=== PATIENT | male | born 1950 | race Hispanic/Latino ===

== ENCOUNTER → 2020-05-08 | Outpatient (CLI) | payer OTHER | END | disposition home or self-care (01) | LOC: RAH 12:52 | PROVIDERS: ATTEND Family Medicine | DX: G25.0 Essential tremor (principal) | CPT/HCPCS: 70450 ==

== ENCOUNTER 2020-09-12 09:06 | Inpatient (IN) | payer OTHER ==
[~2020-09-12] VITALS: Ht 170.2 cm; Wt 73.7 kg
[2020-09-12 09:45] LABS: EOSINOPHILS % (AUTO) 2.7 % (0.0-8.0); HEMATOCRIT 37.3 % (42-54); LYMPHOCYTES % (AUTO) 19.1 % (21.0-51.0); MEAN CORPUSCULAR HEMOGLOBIN 30.3 pg (27.0-33.0); MEAN CORPUSCULAR HGB CONC 33.2 g/dL (32.0-36.0); MEAN CORPUSCULAR VOLUME 91.2 fL (79-99); MONOCYTES % (AUTO) 8.8 % (3.0-13.0); NEUTROPHILS % (AUTO) 67.8 % (40.0-77.0); PLATELET COUNT (AUTO) 161 K/uL (130-400); RED BLOOD CELL COUNT(AUTO) 4.09 MIL/uL (4.50-6.20); RED CELL DISTRIBUTION WIDTH 13.6 % (11.0-15.5); WHITE BLOOD COUNT (AUTO) 6.2 K/uL (4.8-10.8)
[2020-09-12] MEDS ORDERED: ENOXAPARIN SODIUM 80 MG/0.8 ML SQ ONE ×2 (09:48→23:15)
[2020-09-12 10:03] LABS: CREATININE 1.3 mg/dL (0.5-1.5); POTASSIUM 4.2 mmol/L (3.5-5.1)
[2020-09-12 10:08] LABS: ALBUMIN 3.3 g/dL (3.5-5.0); BILIRUBIN,TOTAL 0.7 mg/dL (0.2-1.0); TOTAL PROTEIN, SERUM 7.2 g/dL (6.0-8.3)
[2020-09-12] MEDS ORDERED: ACETAMINOPHEN 650 MG SUPPOSITORY RC PRN (10:30)
[2020-09-12] MEDS ORDERED: LACTULOSE 20 GM/30 ML UDCUP PO PRN (10:30)
[2020-09-12] MEDS ORDERED: CLONIDINE HCL 0.1 MG TABLET PO PRN (10:30)
[2020-09-12] MEDS ORDERED: TEMAZEPAM 15 MG CAPSULE PO PRN (10:30)
[2020-09-12] MEDS ORDERED: ACETAMINOPHEN 325 MG TAB PO PRN (10:30)
[2020-09-12] MEDS ORDERED: ONDANSETRON 4MG INJ IVP PRN (10:30)
[2020-09-12] MEDS ORDERED: MORPHINE 2 MG SYG IVP PRN (10:30)
[2020-09-12 11:27] LABS: APPEARANCE,URINE CLEAR (CLEAR); BILIRUBIN,URINE NEGATIVE (NEGATIVE); COLOR,URINE YELLOW (YELLOW); GLUCOSE, URINE (UA) NEGATIVE (NEGATIVE); KETONES,URINE NEGATIVE (NEGATIVE); LEUKOCYTE ESTERASE ,URINE NEGATIVE (NEGATIVE); NITRATE,URINE NEGATIVE (NEGATIVE); OCCULT BLOOD,URINE TRACE-INTACT (NEGATIVE); PH,URINE 6.5 (5.0-8.0); PROTEIN,URINE NEGATIVE (NEGATIVE); UROBILINOGEN,URINE 0.2 mg/dL (0.2-1.0)
[2020-09-12] MEDS ORDERED: IOHEXOL-350 75 ML VIAL IV ONE (11:50)
[2020-09-12 11:56] LABS: BACTERIA,URINE Rare /HPF (None Seen); RBC,URINE 0-1 /HPF (0-1); SQUAMOUS EPITHELIAL CELL,UR 0-2 /HPF (0-2); WBC,URINE None Seen /HPF (0-1)
[2020-09-12] MEDS ORDERED: GADODIAMIDE 10 MMOL/20 ML VIAL IV ONE (13:42)
[2020-09-12 14:07] LABS: CREATINE KINASE, TOTAL 46 U/L (21-232); MYOGLOBIN 51 ng/mL (10-92); TROPONIN I < 0.04 ng/mL (0.00-0.06)
[2020-09-12 15:03] LABS: ABG BASE EXCESS 1.2 mmol/L (-2.0-3.0); ABG HCO3 25.3 mmol/L (21.0-28.0); ABG OXYGEN SATURATION 96.7 % (95.0-99.0); ABG PCO2 39 mmHg (35-48)
[2020-09-12 19:35] LABS: CREATINE KINASE, TOTAL 43 U/L (21-232); MYOGLOBIN 53 ng/mL (10-92); TROPONIN I < 0.04 ng/mL (0.00-0.06)
[2020-09-13 02:30] LABS: CREATINE KINASE, TOTAL 57 U/L (21-232); MYOGLOBIN 69 ng/mL (10-92); TROPONIN I < 0.04 ng/mL (0.00-0.06)
[2020-09-13 06:02] LABS: BASOPHILS % (AUTO) 1.2 % (0.0-5.0); EOSINOPHILS % (AUTO) 3.5 % (0.0-8.0); HEMATOCRIT 35.5 % (42-54); LYMPHOCYTES % (AUTO) 27.3 % (21.0-51.0); MEAN CORPUSCULAR HEMOGLOBIN 29.6 pg (27.0-33.0); MEAN CORPUSCULAR VOLUME 89.9 fL (79-99); MONOCYTES % (AUTO) 10.7 % (3.0-13.0); NEUTROPHILS % (AUTO) 56.7 % (40.0-77.0); PLATELET COUNT (AUTO) 170 K/uL (130-400); RED BLOOD CELL COUNT(AUTO) 3.95 MIL/uL (4.50-6.20); RED CELL DISTRIBUTION WIDTH 13.5 % (11.0-15.5); WHITE BLOOD COUNT (AUTO) 5.2 K/uL (4.8-10.8)
[2020-09-13 06:04] LABS: HEMOGLOBIN A1C 5.9 % (4.0-6.0)
[2020-09-13 06:10] LABS: CREATININE 1.2 mg/dL (0.5-1.5); POTASSIUM 4.1 mmol/L (3.5-5.1); THYROID STIMULATING HORMONE 1.42 uIU/mL (0.36-3.74)
[2020-09-13] MEDS: ENOXAPARIN SODIUM 80 MG/0.8 ML SQ SCH ×2 (09:00→21:21)
[2020-09-13] MEDS: LACTATED RINGERS 1000ML 1,000 ML IV SCH ×2 (10:30→19:01)
[2020-09-13] MEDS ORDERED: ENOXAPARIN SODIUM 80 MG/0.8 ML SQ ONE (10:44)
[2020-09-13] MEDS ORDERED: CARBIDOPA-LEVODOPA 25-100 TAB PO SCH (11:45)
[2020-09-13] MEDS: CITALOPRAM 20 MG TABLET PO SCH (11:48)
[2020-09-13 17:43] VITALS: BP 117/86
[2020-09-13 19:27] VITALS: BP 134/85
[2020-09-13] MEDS: CARBIDOPA-LEVODOPA 25-100 TAB PO SCH (21:19)
[2020-09-13 23:36] VITALS: BP 102/66
[2020-09-14] VITALS (12 sets, daily range): BP systolic 93–121; BP diastolic 65–90
[2020-09-14] MEDS: LACTATED RINGERS 1000ML 1,000 ML IV SCH ×3 (02:30→17:32)
[2020-09-14] MEDS ORDERED: [UNRECOGNIZED DRUG - OTHER] (08:36)
[2020-09-14] MEDS: ENOXAPARIN SODIUM 80 MG/0.8 ML SQ SCH (09:00)
[2020-09-14] MEDS ORDERED: LIDOCAINE HCL 400MG/20ML VIAL ONE (12:16)
[2020-09-14] MEDS ORDERED: SODIUM BICARB 50MEQ 50ML VIAL 50 ML ONE (12:16)
[2020-09-14] MEDS ORDERED: IODIXANOL 320 MG/ML 100 ML VIAL ONE (12:21)
[2020-09-14] MEDS: CITALOPRAM 20 MG TABLET PO SCH (12:41)
[2020-09-14] MEDS: CARBIDOPA-LEVODOPA 25-100 TAB PO SCH (12:41)
[2020-09-14] MEDS ORDERED: ESCI-8 PO (13:53)
[2020-09-15] MEDS ORDERED: CARBIDOPA-LEVODOPA 25-100 TAB PO SCH (06:00)
== END 2020-09-14 18:25 | disposition home or self-care (01) | DRG 300 ==
LOC: EDH 09:06 → EDHIP 10:24 → OBSVTOIN 10:24 → 3AH 09-13 17:26
PROVIDERS: ADMIT Internal Medicine; ATTEND Internal Medicine
PROC: 06H03DZ Insertion of Intraluminal Device into Inferior Vena Cava, Percutaneous Approach (ICD-10-PCS; principal; 2020-09-14)
PROC: B5191ZZ Fluoroscopy of Inferior Vena Cava using Low Osmolar Contrast (ICD-10-PCS; 2020-09-14)
DX: I82.402 Acute embolism and thrombosis of unspecified deep veins of left lower extremity (principal); K51.90 Ulcerative colitis, unspecified, without complications; R29.6 Repeated falls; R42 Dizziness and giddiness; R07.9 Chest pain, unspecified; Z20.822 Contact with and (suspected) exposure to COVID-19; R54 Age-related physical debility; G20 Parkinson's disease; Z91.81 History of falling; Z79.01 Long term (current) use of anticoagulants
CPT/HCPCS: 36415; 36600; 37191; 70450; 70553; 71275; 80048; 80053; 81001; 82533; 82550; 82803; 83036; 83874; 84439; 84443; 84481; 84484; 85025; 85378; 87426; 93306; 93356; 93880; 97039; A9579; C1769; G0378; J1644; J1650; J3490; J7120; Q9967; U0003

== ENCOUNTER 2021-08-24 14:36 | Emergency (ER) | payer OTHER ==
[~2021-08-24] VITALS: Ht 170.2 cm; Wt 67.1 kg
[~2021-08-24 14:36] MED LIST: ESCI-8 PO
[2021-08-24 14:47] VITALS: BP 115/72
[2021-08-24 15:21] LABS: BASOPHILS % (AUTO) 0.8 % (0.0-5.0); EOSINOPHILS % (AUTO) 3.4 % (0.0-8.0); HEMATOCRIT 43.9 % (42-54); LYMPHOCYTES % (AUTO) 16.2 % (21.0-51.0); MEAN CORPUSCULAR HEMOGLOBIN 29.7 pg (27.0-33.0); MEAN CORPUSCULAR HGB CONC 33.3 g/dL (32.0-36.0); MEAN CORPUSCULAR VOLUME 89.4 fL (79-99); MONOCYTES % (AUTO) 7.4 % (3.0-13.0); NEUTROPHILS % (AUTO) 71.9 % (40.0-77.0); PLATELET COUNT (AUTO) 202 K/uL (130-400); RED BLOOD CELL COUNT(AUTO) 4.91 MIL/uL (4.50-6.20); RED CELL DISTRIBUTION WIDTH 12.8 % (11.0-15.5); WHITE BLOOD COUNT (AUTO) 7.3 K/uL (4.8-10.8)
[2021-08-24 15:32] LABS: CREATININE 1.1 mg/dL (0.5-1.5)
[2021-08-24 15:37] LABS: ALBUMIN 3.9 g/dL (3.5-5.0); BILIRUBIN,TOTAL 0.4 mg/dL (0.2-1.0); TOTAL PROTEIN, SERUM 7.3 g/dL (6.0-8.3)
[2021-08-24] MEDS ORDERED: 0.9%NACL 1000ML 1,000 ML IV ONE (16:00)
[2021-08-24 16:09] LABS: APPEARANCE,URINE Clear (CLEAR); BILIRUBIN,URINE Negative (NEGATIVE); COLOR,URINE Yellow (YELLOW); GLUCOSE, URINE (UA) Negative (NEGATIVE); KETONES,URINE Negative (NEGATIVE); LEUKOCYTE ESTERASE ,URINE Negative (NEGATIVE); NITRATE,URINE Negative (NEGATIVE); OCCULT BLOOD,URINE Negative (NEGATIVE); PROTEIN,URINE Negative (NEGATIVE); UROBILINOGEN,URINE 0.2 mg/dL (0.2-1.0)
[2021-08-24 16:17] LABS: AMPHET/METH SCREEN,URINE NEGATIVE (NEGATIVE); BARBITURATE SCREEN, URINE NEGATIVE (NEGATIVE); BENZODIAZEPINES SCREEN,URINE NEGATIVE (NEGATIVE); CANNABINOID SCREEN,URINE POSITIVE (NEGATIVE); COCAINE SCREEN,URINE NEGATIVE (NEGATIVE); OPIATE SCREEN,URINE NEGATIVE (NEGATIVE); PHENCYCLIDINE SCREEN,URINE NEGATIVE (NEGATIVE)
== END 2021-08-24 18:00 | disposition home or self-care (01) ==
LOC: EDH 14:36
DX: I95.1 Orthostatic hypotension (principal); R42 Dizziness and giddiness; G20 Parkinson's disease; F12.10 Cannabis abuse, uncomplicated; F41.0 Panic disorder [episodic paroxysmal anxiety]
CPT/HCPCS: 36415; 70450; 71045; 80053; 80305; 81003; 84484; 85025; 86140; 96360; 96361; 99285; J7030

== ENCOUNTER 2021-12-20 09:38 | Emergency (ER) | payer OTHER ==
[2021-12-20 10:24] LABS: BASOPHILS % (AUTO) 0.6 % (0.0-5.0); EOSINOPHILS % (AUTO) 1.3 % (0.0-8.0); HEMATOCRIT 43.4 % (42-54); LYMPHOCYTES % (AUTO) 24.9 % (21.0-51.0); MEAN CORPUSCULAR HEMOGLOBIN 30.2 pg (27.0-33.0); MEAN CORPUSCULAR HGB CONC 33.9 g/dL (32.0-36.0); MEAN CORPUSCULAR VOLUME 89.1 fL (79-99); NEUTROPHILS % (AUTO) 64.8 % (40.0-77.0); PLATELET COUNT (AUTO) 167 K/uL (130-400); RED BLOOD CELL COUNT(AUTO) 4.87 MIL/uL (4.50-6.20); RED CELL DISTRIBUTION WIDTH 13.3 % (11.0-15.5); WHITE BLOOD COUNT (AUTO) 8.3 K/uL (4.8-10.8)
[2021-12-20 10:31] LABS: CREATININE 1.2 mg/dL (0.5-1.5); POTASSIUM 3.8 mmol/L (3.5-5.1)
[2021-12-20 10:40] LABS: ALBUMIN 3.3 g/dL (3.5-5.0); BILIRUBIN,TOTAL 0.6 mg/dL (0.2-1.0); TOTAL PROTEIN, SERUM 6.1 g/dL (6.0-8.3)
[2021-12-20 10:48] LABS: INR 0.99 (0.85-1.15); PROTHROMBIN TIME 10.8 SEC (9.6-11.6)
[2021-12-20 10:49] LABS: PARTIAL THROMBOPLASTIN TIME 24.4 SEC (26.3-35.5)
[2021-12-20 11:36] VITALS: BP 112/70
[2021-12-20] MEDS ORDERED: 0.9%NACL 1000ML 1,000 ML IV ONE (12:00)
[2021-12-20] MEDS ORDERED: LORAZEPAM 2 MG/ML 1 ML VIAL IVP ONE (12:00)
[2021-12-20] MEDS ORDERED: IOHEXOL-350 75 ML VIAL IV ONE (12:36)
== END 2021-12-20 15:32 | disposition home or self-care (01) ==
LOC: EDH 09:38
DX: R07.89 Other chest pain (principal); F41.9 Anxiety disorder, unspecified; G20 Parkinson's disease; E86.1 Hypovolemia; Z86.718 Personal history of other venous thrombosis and embolism; Z79.899 Other long term (current) drug therapy
CPT/HCPCS: 36415; 71045; 71270; 80053; 84484 ×2; 85025; 85378; 85610; 85730; 93005; 96361; 96374; 99285; J2060; J7030; Q9967